=== PATIENT | male | born 1940 | race African-American/Black ===

== ENCOUNTER 2017-01-01 12:44 | Emergency (ER) | payer MEDICARE, MEDICAID ==
[~2017-01-01] VITALS: Ht 165.1 cm; Wt 65.8 kg
[2017-01-01 13:13] VITALS: BP 137/57
[2017-01-01] MEDS ORDERED: TYLENOL EXTRA500 MG ORAL (13:58)
[2017-01-01 14:06] VITALS: BP 123/65
--- NOTE | 2017-01-01 14:27 | Diagnostic Imaging Report ---
Indication: COUGH Technique: One view of the chest Comparison: none Findings: Lungs and pleural spaces are clear. Heart size is normal. Impression: No acute process
--- NOTE | 2017-01-01 14:46 | Emergency Room Report ---
History of Present Illness General Chief Complaint: Upper Respiratory Illness Source: Patient Present Illness HPI The patient is a 76-year-old male presenting with a dry cough for the past week. Patient also admits to subjective fevers. The patient was seen by his PMD yesterday and given a prescription for Levaquin. The patient denies a smoking history or any history of lung disease. The patient only took 1 tablet this morning. Patient states symptoms are the same. The patient denies other symptoms including chills, headache, nausea, vomiting, chest pain, shortness of breath, Allergies: Coded Allergies: No Known Allergies (Unverified , 01/01/17) Patient History Past Medical History: see triage record Pertinent Family History: none Reviewed Nursing Documentation: PMH: Agreed, PSxH: Agreed Nursing Documentation-PMH Past Medical History: No History, Except For Hx Hypertension: Yes Review of Systems All Other Systems: negative except mentioned in HPI Physical Exam Vital Signs Date Time Temp Pulse Resp B/P Pulse Ox O2 Delivery O2 Flow Rate FiO2 01/01/17 13:09 102.6 125 18 137/57 94 Room Air Sp02 EP Interpretation: reviewed, normal General Appearance: no apparent distress, alert, GCS 15, non-toxic Head: normocephalic, atraumatic ENT: hearing grossly normal, normal pharynx, no angioedema, normal voice Neck: full range of motion, supple/symm/no masses Respiratory: wheezing - bilat lower lobe Cardiovascular #1: regular rate, rhythm, no edema Gastrointestinal: normal bowel sounds, non tender, soft, non-distended, no guarding, no rebound Musculoskeletal: back normal, gait/station normal, normal range of motion, non- tender Neurologic: alert, oriented x3, responsive, motor strength/tone normal, sensory intact, speech normal Psychiatric: judgement/insight normal, memory normal, mood/affect normal, no suicidal/homicidal ideation Skin: normal color, no rash, warm/dry, well hydrated Lymphatic: no adenopathy Medical Decision Making PA Attestation Dr. Mayer is my supervising physician. Patient management was discussed with my supervising physician Diagnostic Impression: Primary Impression: Pneumonia ER Course The patient is a 76-year-old male presenting with a dry cough for the past week. Differential diagnosis include but not limited to pharyngitis, bronchitis, PNA Physical exam: Patient is febrile and tachycardic. No apparent distress HEENT exam is unremarkable. No tonsillar edema or erythema. Uvula midline. No cervical lymphadenopathy. Lungs: There is bilateral lower lobe wheezing. No respiratory distress Chest x-ray is unremarkable The patient is given Tylenol for fever which has reduced The patient will continue taking Levaquin as prescribed by his PMD. Patient is given a prescription for Tylenol for the fever. ER precautions are given Chest X-Ray Diagnostic Results EP Interpretation: Yes Findings: no consolidation, no effusion, no pneumothorax, no acute cardiopulmonary disease Number of Views: 1 PA Scribe Text I am acting as scribe for my supervising physician. My supervising physician's interpretation of the chest xrays are there is no consolidation, no effusion, no acute cardiopulmonary disease, no pneumothorax Last Vital Signs Date Time Temp Pulse Resp B/P Pulse Ox O2 Delivery O2 Flow Rate FiO2 01/01/17 14:06 101.8 01/01/17 14:06 116 18 123/65 94 Room Air Status: improved Disposition: HOME, SELF-CARE Condition: Improved Scripts Acetaminophen* (TYLENOL EXTRA STRENGTH*) 500 Mg Tablet 500 MG ORAL Q8H Y for Prn Headache/Temp > 101, #30 TAB 0 Refills Prov: BARBARA ORTIZ 01/01/17 Referrals: JESSICA MORIN (PCP) Patient Instructions: Community-Acquired Pneumonia, Adult Additional Instructions: I discussed my findings with the patient. All questions and concerns have been answered. Treatment and medication compliance have been addressed. I advised the patient that they need to follow up with primary doctor as soon as possible. Return to ED if pain remains or worsens, cough worsens or remains, you notice blood in your sputum, you notice wheezing, you experience a fever, or if needed for any reason. Patient verbalized understanding of discharge instructions. BARBARA ORTIZ Jan 01, 2017 14:46
== END 2017-01-01 15:00 | disposition home or self-care (01) ==
LOC: EMR 14:34
DX: J18.9 Pneumonia, unspecified organism (principal); I10 Essential (primary) hypertension
CPT/HCPCS: 71010; 99283